=== PATIENT | female | born 1975 | race Caucasian/White ===

== ENCOUNTER 2020-03-22 19:34 | Emergency (ER) | payer MEDICARE, MEDICAID ==
[2020-03-22] MEDS ORDERED: METHYLPREDNISOLONE INJ 125 MG/2 ML SDV IV ONE (20:01)
[2020-03-22] MEDS ORDERED: IPRATROPIUM/ALBUTEROL 0.5-2.5 MG/3 ML AMPUL NEB ONE ×3 (20:03→22:05)
--- NOTE | 2020-03-22 20:03 | ER Document Report ---
ED Respiratory Problem - General Chief Complaint: COPD Exacerbation Stated Complaint: COPD EXACERBATION Time Seen by Provider: 03/22/20 19:44 Notes: Patient is a 44-year-old female who presents emergency department with a chief complaint of shortness of breath. Patient states that she started to be short of breath 3 days ago. Patient has a history of COPD. Patient states that this feels just like her normal COPD exacerbation. She continues to smoke a pack a day. Visiting her boyfriend from [place]. Patient states that she wears 2 L of oxygen via nasal cannula at night. Denies not having access to her oxygen. Denies any contact with anybody who has tested positive for COVID-19. - Related Data Allergies/Adverse Reactions: cephalexin [From Keflex] Allergy (Verified 03/22/20 19:42) haloperidol [From Haldol] Allergy (Verified 03/22/20 19:42) ketorolac [From Toradol] Allergy (Verified 03/22/20 19:42) meperidine [From Demerol] Allergy (Verified 03/22/20 19:42) metronidazole [From Flagyl] Allergy (Verified 03/22/20 19:42) Penicillins Allergy (Verified 03/22/20 19:42) Home Medications: olevothyroxine, protonix, zofran, Phenergan, methylprednisone, lyrica, flexeril, lactulose, zoloft, duoneb, oxygen 2LQHS Past Medical History - Social History Smoking Status: Current Every Day Smoker Chew tobacco use (# tins/day): No Frequency of alcohol use: None Drug Abuse: None Family History: Reviewed & Not Pertinent Patient has suicidal ideation: No Patient has homicidal ideation: No Pulmonary Medical History: Reports: Hx COPD Review of Systems - Review of Systems Notes: REVIEW OF SYSTEMS: CONSTITUTIONAL : Denies recent illness. Denies recent unintentional weight loss. Denies fever, chills, or sweats. EENT: Denies eye, ear, throat, or mouth pain, discharge, or symptoms. Denies nasal or sinus congestion. CARDIOVASCULAR: Denies chest pain. RESPIRATORY: See HPI. GASTROINTESTINAL: Denies nausea, vomiting, and diarrhea. Denies abdominal pain. Denies constipation. GENITOURINARY: Denies difficulty urinating, burning, blood in urine, urgency or frequency. MUSCULOSKELETAL: Denies neck and back pain. Denies joint pain or swelling. SKIN: Denies rash, itchiness, or lesions HEMATOLOGIC : Denies easy bruising or bleeding. LYMPHATIC: Denies swollen, painful, enlarged glands. NEUROLOGICAL: Denies no numbness or tingling denies weakness. Denies headache. Denies altered mental status. Denies alteration in speech. PSYCHIATRIC: Denies stress, anxiety, alteration in sleep patterns, or depression. All other systems reviewed and negative. Physical Exam - Vital signs Vitals: Temp 98.7 F 03/22/20 19:44 - Notes Notes: PHYSICAL EXAMINATION: GENERAL: Appears well, healthy, well-nourished, no acute distress. HEAD: Normocephalic, atraumatic. EYES: PERRL, conjunctiva normal, all extraocular movements intact, sclera nonicteric ENT: Moist mucous membranes. NECK: Supple, no noticeable swelling, redness, rash. Normal range of motion. LUNGS: Expiratory wheezes noted throughout all lung wallace, but predominantly in the right upper lobe. CARDIOVASCULAR: S1-S2, regular rate, regular rhythm. Radial pulses 2+, normal. ABDOMEN: Normoactive bowel sounds. Soft, nontender, no guarding, no rebound tenderness, and no masses palpated. EXTREMITIES: Normal strength and range of motion, no pitting or edema. No cyanosis. NEUROLOGICAL: Moves all extremities upon command. Strength 5/5 in all extremities. PSYCH: Normal mood, normal affect. SKIN: Warm, dry. No rash, lesions, ulcerations noted. Normal skin turgor. Course - Re-evaluation Re-evalutation: 03/22/20 22:18 I reevaluated the patient and patient still has expiratory wheezes noted throughout. She will receive another 2 doses of DuoNeb and will reassess. 03/22/20 23:26 Patient's lung sounds have improved and she states that she feels better after receiving breathing treatments, magnesium, and Solu-Medrol.. Patient will be sent home with a course of steroids. Patient states that she does not have money for the albuterol inhaler, but I educated the patient that if she has money to smoke cigarettes every day, then she has money to buy her inhaler. Patient states that her boyfriend buys her her cigarettes. I told the patient to make sure that her boyfriend buys her the inhaler, as this is more important to have than cigarettes. She is in agreement with this plan. She will follow- up with her primary care provider. Follow-up precautions were given. Verbal discharge instructions were given to the patient. They verbalized understandin g. They are stable for discharge. - Vital Signs Vital signs: Temp Pulse Resp BP Pulse Ox 8.5 F L 19 105/81 98 03/22/20 23:52 03/22/20 23:52 03/22/20 23:52 03/22/20 23:52 - Laboratory Result Diagrams: 03/22/20 20:05 03/22/20 20:05 Laboratory results interpreted by me: 03/22/20 03/22/20 20:05 20:05 WBC 12.1 H Hgb 8.9 L Hct 28.9 L MCV 71 L MCH 21.8 L MCHC 30.7 L RDW 25.3 H Sodium 136.9 L Potassium 3.3 L Carbon Dioxide 31 H Creatinine 0.49 L Calcium 8.2 L Albumin 3.4 L Discharge - Discharge Clinical Impression: COPD exacerbation Condition: Stable Disposition: HOME, SELF-CARE Additional Instructions: You were seen for a COPD exacerbation. Your symptoms improved with treatment here in the emergency department. However, it is very important that you return to the emergency department immediately if you began to have worsening difficulty breathing that does not respond to your normal home nebulizers/inhalers. You are also being sent home on a five-day course of steroids that you should start taking tomorrow. Please also follow closely with your primary care physician. you should also return to emergency department if you develop fever greater than 101, persistent cough, persistent vomiting, pass out, or any other symptoms that are concerning to you. Prescriptions: Prednisone [Deltasone 20 mg Tablet] 3 tab PO DAILY 5 Days #15 tablet Albuterol Sulfate [Proair HFA Inhalation Aerosol 8.5 gm MDI] 2 puff IH Q4H PRN #1 mdi PRN Reason:
[2020-03-22] MEDS: MAGNESIUM SULFATE/D5W 1 GM/100 ML RTUPB IV SCH ×2 (20:58→21:26)
--- NOTE | 2020-03-22 21:03 | RADIOLOGY REPORT (SQ) ---
CLINICAL INDICATION: shortness of breath. TECHNIQUE: A single portable AP view was obtained of the chest at 2032 hours. COMPARISON: None. FINDINGS: The cardiomediastinal silhouette is prominent. The lungs demonstrate mild diffuse interstitial prominence at the bases. No focal consolidation. No evidence of effusion or pneumothorax. The visualized bones are unremarkable. Right-sided port catheter tip in good position IMPRESSION: Mild diffuse interstitial prominence at the bases, unknown chronicity. No associated vascular congestion. No dense consolidation.
[2020-03-22 21:04] LABS: HEMATOCRIT 28.9 % (36.0-47.0); HEMOGLOBIN 8.9 g/dL (12.0-15.5); MEAN CORPUSCULAR HEMOGLOBIN 21.8 pg (27.0-33.4); MEAN CORPUSCULAR HGB CONC 30.7 g/dL (32.0-36.0); MEAN CORPUSCULAR VOLUME 71 fl (80-97); PLATELET COUNT 392 10^3/uL (150-450); RED BLOOD COUNT 4.07 10^6/uL (3.72-5.28); RED CELL DISTRIBUTION WIDTH 25.3 % (11.5-14.0); WHITE BLOOD COUNT 12.1 10^3/uL (4.0-10.5)
[2020-03-22 21:09] LABS: ALBUMIN 3.4 g/dL (3.5-5.0); ALKALINE PHOSPHATASE 109 U/L (38-126); ANION GAP 5 (5-19); ASPARTATE AMINO TRANSFERASE 19 U/L (14-36); BILIRUBIN,TOTAL 0.3 mg/dL (0.2-1.3); BLOOD UREA NITROGEN 13 mg/dL (7-20); CALCIUM 8.2 mg/dL (8.4-10.2); CARBON DIOXIDE 31 mmol/L (22-30); CHLORIDE 101 mmol/L (98-107); GLUCOSE 77 mg/dL (75-110); POTASSIUM 3.3 mmol/L (3.6-5.0); TOTAL PROTEIN 6.8 g/dL (6.3-8.2)
[2020-03-22 21:30] LABS: ABSOLUTE LYMPHOCYTES# (MANUAL) 4.4 10^3/uL (0.5-4.7); ABSOLUTE MONOCYTES # (MANUAL) 1.1 10^3/uL (0.1-1.4); BAND NEUTROPHILS % (MANUAL) 4 % (3-5); BASOPHILS % (MANUAL) 0 % (0-2); EOSINOPHILS % (MANUAL) 2 % (0-6); LYMPHOCYTES % (MANUAL) 36 % (13-45); MONOCYTES % (MANUAL) 9 % (3-13); NUCLEATED RED BLOOD CELLS 2 /100 WBC (0); SEGMENTED NEUTROPHILS % (MAN) 49 % (42-78); TOTAL CELLS COUNTED 100
[2020-03-22 21:31] LABS: ANISOCYTOSIS 4+; BURR CELLS 1+; HYPOCHROMASIA 1+; PLATELET COMMENT ADEQUATE; POIKILOCYTOSIS 1+; POLYCHROMASIA 1+
[2020-03-23 00:02] VITALS: BP 105/81
== END 2020-03-23 00:08 | disposition home or self-care (01) ==
LOC: ER 19:34
DX: J44.1 Chronic obstructive pulmonary disease with (acute) exacerbation (principal); R06.02 Shortness of breath; F17.210 Nicotine dependence, cigarettes, uncomplicated; Z99.81 Dependence on supplemental oxygen; Z79.899 Other long term (current) drug therapy; Z88.1 Allergy status to other antibiotic agents; Z88.8 Allergy status to other drugs, medicaments and biological substances; Z88.6 Allergy status to analgesic agent; Z88.5 Allergy status to narcotic agent; Z88.0 Allergy status to penicillin
CPT/HCPCS: 36591; 94640 ×2; 99285; 96375; 96365; 36415; 85025; 80053; 71045; J2930; J3475; A9270; J1642; J7620